=== PATIENT | female | born 1985 | race Caucasian/White ===

== ENCOUNTER 2016-11-12 13:32 | Emergency (ER) | payer OTHER ==
[2016-11-12] MEDS ORDERED: ONDANSETRON HCL/PF 4 MG/ 2ML VIAL IVP ONE (14:00)
[2016-11-12] MEDS ORDERED: 0.9 % SODIUM CHLORIDE 1,000 ML IV SCH (14:00)
[2016-11-12] MEDS ORDERED: ONDANSETRON HCL 4 MG TAB.RAPDIS PO ONE (14:02)
[2016-11-12] MEDS ORDERED: ONDANSETRON HCL 4 MG TAB.RAPDIS ONE (14:07)
--- NOTE | 2016-11-12 14:14 | ED Physician Documentation ---
Nausea/Vomiting/Diarrhea - HISTORIAN Historian: patient - HPI Stated Complaint: N/V ABD PAIN Chief Complaint: Nausea,Vomiting,Diarrhea Additional Information: PT ATE POSS TAINTED LPORK CHOPS 2 NOCTS AGO AWOKE NEXT AM [id number] IN ORDERS THEN PT REQUESTED MEDS W/O LAB OR OTHER TX-APEARS SATIS. INST TO COME BACKK PRN SYM PERSIST Onset: days ago (2) Duration: waxing, waning Timing: gradual onset, still present Context: bad food. denies: out of country travel Severity: moderate - Associated Symptoms Vomiting: frequent Diarrhea: mild Abdominal Pain: cramping (GENERALIZED BU T MIKE LOW ABD-MENSES OK), mild, moderate - ROS CONST: no problems CVS/RESP: denies: shortness of breath, cough GI/: none EYES/ENT: none MS/SKIN/LYMPH: denies: joint pain, leg swelling, rash, swollen glands, ankle swelling NEURO/PSYCH: none - PAST HX Past History: other (IBS) Surgeries/Procedures: none Allergies/Adverse Reactions: Allergies Allergy/AdvReac Type Severity Reaction Status Date / Time No Known Allergies Allergy Verified 11/12/16 13:45 Home Medications: Ambulatory Orders Medication Instructions Recorded Ondansetron HCl Rapdis [Zofran Odt] 4 mg PO Q4-6 PRN #10 tab 11/12/16 - SOCIAL HX Smoking History: less than 1 pack/day Alcohol Use: rarely Drug Use: none - FAMILY HX Family History: none - VITAL SIGNS Vital Signs: Vital Signs Temp Pulse Resp BP Pulse Ox 98.7 F 92 H 16 112/72 97 11/12/16 13:32 11/12/16 13:32 11/12/16 13:32 11/12/16 13:32 11/12/16 13:32 - REVIEWED ASSESSMENTS Nursing Assessment Reviewed: Yes Vitals Reviewed: Yes ED Results Lab/Radiology - Orders Orders: ED Orders Category Date Time Status Place IV Lock 1T Care 11/12/16 14:02 Inactive 0.9 % Sodium Chloride [Normal Saline] 1,000 ml Med 11/12/16 14:00 Stop Req IV Q10H Ondansetron HCl Rapdis [Zofran Odt] Med 11/12/16 14:07 Discontinued 4 mg .ROUTE .STK-MED ONE Ondansetron HCl Rapdis [Zofran Odt] Med 11/12/16 14:02 Once 4 mg PO NOW ONE Ondansetron HCl/Pf [Zofran 4 mg/2 ml] Med 11/12/16 14:00 Stop Req 4 mg IVP NOW ONE Nausea Physical Exam - EXAM General Appearance: mild distress EENT: eye inspection normal Neck: normal inspection, thyroid normal, supple Respiratory: no resp distress, chest non-tender, breath sounds normal CVS: reg rate & rhythm, heart sounds normal Abdomen: tenderness (SLIGHT GENERALIZED BUT MORESO IN LOWER ABDOMEN) Back: non-tender, painless ROM Skin: warm/dry, normal color. No: cyanosis, diaphoresis, jaundice, mottled Neuro/Psych: oriented X3, motor nml, sensation nml Discharge Clincal Impression: SUSPECT POOD POISIONING Prescriptions: Ondansetron HCl Rapdis [Zofran Odt] 4 mg PO Q4-6 PRN #10 tab PRN Reason: Nausea / Vomiting Referrals: Primary Doctor,No [Primary Care Provider] - 2 Days Comments: WILL RET PRN-ALSO REC ORT OF 2/3 GATORAID 1/3 WATER Disposition: 01 HOME, SELF-CARE Decision to Admit: NO Decision Time: 14:19
[2016-11-12 14:50] VITALS: BP 116/80
== END 2016-11-12 14:35 | disposition home or self-care (01) ==
LOC: ED 13:32
DX: R11.2 Nausea with vomiting, unspecified (principal); R10.9 Unspecified abdominal pain
CPT/HCPCS: A9270 ×2; 96361; 96374; 99283

== ENCOUNTER 2018-09-01 18:53 | Emergency (ER) | payer SELFPAY ==
[2018-09-01 19:12] VITALS: BP 126/80
[2018-09-01] MEDS: DIPH,PERTUSS(ACELL),TET VAC/PF 0.5 ML DISP.SYRIN IM ONE (19:14)
--- NOTE | 2018-09-01 19:35 | ED Physician Documentation ---
Abscess - HISTORIAN Historian: patient - HPI Stated Complaint: Possible spider bite to Rt lower abdomen Chief Complaint: General Adult (? Spider Bite to Right Abdomen) Additional Information: Patient is a 33-year-old female that presents to the ER (from [place]) with c/o ? spider bite to the right side of abdomen. Patient states that she noticed it today- area almost looks like a blistered cigarrette burn but patient denies- Blister oozing a little yellowish discharge (cultured and sent to lab). Cleansed with Chlorhexidine, applied KALINA, and applied telfa with paper tape (approved by guard). Onset: hours Timing: still present Duration: persistent since Location: other (abdomen) Quality: itchy Identified Cause?: No When Did Symptoms Start: 09/01/18 Where: other ([facility]) Context: Medication Exposure: none Context: Food Exposure: none Context: Other Exposure: other (? spider bite) - ROS CONST: none CVS/RESP: none EYES/ENT: none GI/: none MS/SKIN/LYMPH: none NEURO/PSYCH: none - PAST HX Past History: none Other History: none Surgeries/Procedures: No Immunizations: tetanus (UTD), UTD Allergies/Adverse Reactions: Allergies Allergy/AdvReac Type Severity Reaction Status Date / Time No Known Allergies Allergy Verified 09/01/18 19:13 Home Medications: Ambulatory Orders Medication Instructions Recorded NK 09/01/18 - SOCIAL HX Smoking History: less than 1 pack/day Alcohol Use: none Drug Use: none - FAMILY HX Family History: none - VITAL SIGNS Vital Signs: Vital Signs Temp Pulse Resp BP Pulse Ox 78 16 126/80 98 09/01/18 18:53 09/01/18 18:53 09/01/18 18:53 09/01/18 18:53 - REVIEWED ASSESSMENTS Nursing Assessment Reviewed: Yes Vitals Reviewed: Yes Procedures Site: abdomen I & D Procedure: Chlorhexidine Progress: Blister already has greenish discharge- cultured- cleansed with Chlorhexidine- KALINA applied- Telfa and paper tape ED Results Lab/Radiology - Orders Orders: ED Orders Category Date Time Status WOUND CULTURE Stat Lab 09/01/18 Ordered Diph,Pertuss(Acell),Tet Vac/Pf [Adacel] Med 09/01/18 19:08 Discontinued 0.5 ml IM .ONCE ONE cefTRIAXone SODIUM [Rocephin] 1 gm Med 09/01/18 19:31 Discontinued Lidocaine 1% 5ml [Xylocaine] 2.1 ml IM NOW Abscess Physical Exam - EXAM General Appearance: no acute distress, alert Skin: warm,dry, lesion (blistered- yellowish filled discharge) Location: abdomen Character: other (circular) Symptoms: warmth, tenderness, swelling Extremities: non-tender EENT: eyes nml inspection, lips nml, gums nml, pharynx nml Neck: trachea midline Respiratory: breath sounds normal CVS: heart sounds nml Neuro/Psych: oriented x3, CN's nml as tested, motor nml, sensation nml, mood/affect nml Discharge Clincal Impression: Spider bite Referrals: Primary Doctor,No [Primary Care Provider] - 2 Days Additional Instructions: Use antibiotic ointment and bandaid Wound culture sent to lab IM Rocephin given in ER Start Cephalexin 500mg by mouth every 6 hours for 10 days Follow up with PCP next week for re-evaluation Condition: Good Disposition: 01 HOME, SELF-CARE Decision to Admit: NO Decision Time: 19:58
[2018-09-01] MEDS: cefTRIAXone SODIUM 1 GM in Lidocaine 1% 5ml 2.1 ML IM ONE (20:00)
== END 2018-09-01 20:30 | disposition home or self-care (01) ==
LOC: ED 18:53
DX: S30.861A Insect bite (nonvenomous) of abdominal wall, initial encounter (principal); W57.XXXA Bitten or stung by nonvenomous insect and other nonvenomous arthropods, initial encounter
CPT/HCPCS: 87070; 87186; 96374; 99284; J0696